=== PATIENT | female | born 1960 | race Two or more races ===

== ENCOUNTER 2018-05-12 07:10 | Outpatient (CLI) | payer OTHER | END 2018-05-12 07:15 | disposition home or self-care (01) | LOC: TOM 07:10 | DX: R19.02 Left upper quadrant abdominal swelling, mass and lump (principal); R19.05 Periumbilic swelling, mass or lump | CPT/HCPCS: 74178; Q9965 ==

== ENCOUNTER 2021-09-12 05:30 | Day surgery (SDC) | payer OTHER ==
[~2021-09-12 05:30] MED LIST: CARAFATE1 GM PO; NEXIUM40 M1 PO; TOPROL XL25 M1 PO; VALSARTAN80 MG PO
[2021-09-12] MEDS ORDERED: DOXYCYCLINE HY100 M2 PO (08:45)
== END 2021-09-12 15:44 | disposition home or self-care (01) ==
LOC: CIR.AMB 05:30
PROVIDERS: ATTEND Obstetrics & Gynecology
DX: N84.0 Polyp of corpus uteri (principal); Z20.822 Contact with and (suspected) exposure to COVID-19; Z88.6 Allergy status to analgesic agent; Z88.0 Allergy status to penicillin; J45.909 Unspecified asthma, uncomplicated; G43.909 Migraine, unspecified, not intractable, without status migrainosus